=== PATIENT | male | born 1960 | race Hispanic/Latino ===

== ENCOUNTER 2019-04-14 09:47 | Inpatient (IN) | payer OTHER ==
[~2019-04-14] VITALS: Ht 165.1 cm; Wt 68.0 kg
[2019-04-14] VITALS (21 sets, daily range): BP systolic 112–135; BP diastolic 60–86
[2019-04-14] MEDS ORDERED: ONDANSETRON HCL 4 MG/2 ML VIAL ONE ×2 (09:56→16:35)
[2019-04-14] MEDS ORDERED: KETOROLAC TROMETHAMINE 30MG/ML ONE (09:56)
[2019-04-14 10:03] LABS: BASOPHILS % (AUTO) 0.3 % (0.0-5.0); EOSINOPHILS % (AUTO) 1.7 % (0.0-8.0); HEMATOCRIT 47.7 % (42-54); LYMPHOCYTES % (AUTO) 7.1 % (21.0-51.0); MEAN CORPUSCULAR HEMOGLOBIN 33.7 pg (27.0-33.0); MEAN CORPUSCULAR HGB CONC 34.4 g/dL (32.0-36.0); MONOCYTES % (AUTO) 8.2 % (3.0-13.0); NEUTROPHILS % (AUTO) 82.7 % (40.0-77.0); PLATELET COUNT (AUTO) 252 K/uL (130-400); RED BLOOD CELL COUNT(AUTO) 4.87 MIL/uL (4.50-6.20); RED CELL DISTRIBUTION WIDTH 13.5 % (11.0-15.5); WHITE BLOOD COUNT (AUTO) 12.5 K/uL (4.8-10.8)
[2019-04-14 10:18] LABS: CREATININE 1.1 mg/dL (0.5-1.5); POTASSIUM 4.4 mmol/L (3.5-5.1)
[2019-04-14 10:22] LABS: ALBUMIN 3.2 g/dL (3.5-5.0); BILIRUBIN,DIRECT 0.2 mg/dL (0.0-0.3); BILIRUBIN,TOTAL 0.9 mg/dL (0.2-1.0); TOTAL PROTEIN, SERUM 7.8 g/dL (6.0-8.3)
[2019-04-14] MEDS ORDERED: ZOSYN 3.375GM+NS 50ML 50 ML IV ONE ×2 (11:56→18:08)
[2019-04-14 12:05] LABS: APPEARANCE,URINE Clear (CLEAR); BILIRUBIN,URINE Small (NEGATIVE); COLOR,URINE Dark Yellow (YELLOW); GLUCOSE, URINE (UA) Negative (NEGATIVE); KETONES,URINE Negative (NEGATIVE); LEUKOCYTE ESTERASE ,URINE Negative (NEGATIVE); NITRATE,URINE Negative (NEGATIVE); OCCULT BLOOD,URINE Trace (NEGATIVE); PH,URINE 5.5 (5.0-8.0); PROTEIN,URINE POS 2+ mg/dL (NEGATIVE)
[2019-04-14 12:13] LABS: AMPHET/METH SCREEN,URINE NEGATIVE (NEGATIVE); BARBITURATE SCREEN, URINE NEGATIVE (NEGATIVE); BENZODIAZEPINES SCREEN,URINE NEGATIVE (NEGATIVE); CANNABINOID SCREEN,URINE NEGATIVE (NEGATIVE); COCAINE SCREEN,URINE POSITIVE (NEGATIVE); OPIATE SCREEN,URINE NEGATIVE (NEGATIVE); PHENCYCLIDINE SCREEN,URINE NEGATIVE (NEGATIVE)
[2019-04-14 12:47] LABS: BACTERIA,URINE Rare /HPF (None Seen); RBC,URINE 0-1 /HPF (0-1); SQUAMOUS EPITHELIAL CELL,UR Rare /HPF (0-2); WBC,URINE 0-1 /HPF (0-1)
[2019-04-14] MEDS ORDERED: LACTATED RINGERS 1000ML 1,000 ML IV ONE (13:29)
--- NOTE | 2019-04-14 13:49 | NUR ---
POTENTIAL FOR INFECTION: SHAVED ENTIRE ABDOMEN PER TARAS SAEZ.
--- NOTE | 2019-04-14 14:05 | NUR ---
VALUABLES: VALUABLES SENT TO SECURITY, SEE ATTACHED SHEET.
[2019-04-14] MEDS ORDERED: BUPIVACAINE/PF 0.5% 30ML VIAL ONE ×2 (14:33→16:04)
[2019-04-14] MEDS ORDERED: MIDAZOLAM HCL 1 MG/ML 2ML VIAL ONE (15:47)
[2019-04-14] MEDS ORDERED: PROPOFOL 10 MG/ML 20ML VIAL IV ONE (15:52)
[2019-04-14] MEDS ORDERED: LIDOCAINE PF 2% 5ML ABBOJECT ONE (15:52)
[2019-04-14] MEDS ORDERED: ROCURONIUM 10MG/1ML SYR 10 MG/ML ML ONE (15:53)
[2019-04-14] MEDS ORDERED: FENTANYL CITRATE PF 50 MCG/1 ML 5ML AMP IV ONE (15:53)
[2019-04-14] MEDS ORDERED: EPHEDRINE SULFATE 50 MG/ML AMPULE ONE (16:37)
[2019-04-14] MEDS ORDERED: GLYCOPYRROLATE 1 MG/5 ML SYRINGE ONE (17:29)
[2019-04-14] MEDS ORDERED: NEOSTIGMINE 5MG/5ML SYR IV ONE (17:29)
[2019-04-14] MEDS ORDERED: MEPERIDINE-PF 25 MG/ML SYG ONE ×3 (17:36→19:15)
[2019-04-14] MEDS: LACTATED RINGERS 1000ML 1,000 ML IV SCH (17:56)
[2019-04-14] MEDS ORDERED: ONDANSETRON HCL 4 MG/2 ML VIAL IVP PRN (18:00)
--- NOTE | 2019-04-14 19:26 | NUR ---
SECURITY RETURNED PT'S BELONGINGS. Addendum: 04/14/19 at 1927 by NICOLA TALBOT RN RN Amended: Links added.
[2019-04-15] VITALS (8 sets, daily range): BP systolic 108–119; BP diastolic 53–74
[2019-04-15] MEDS ORDERED: ZOSYN 3.375GM+NS 50ML 50 ML IV ONE (00:55)
[2019-04-15] MEDS: ZOSYN 3.375GM+NS 50ML 50 ML IV SCH ×3 (01:14→18:58)
[2019-04-15 04:25] LABS: BASOPHILS % (AUTO) 0.3 % (0.0-5.0); EOSINOPHILS % (AUTO) 0.4 % (0.0-8.0); HEMATOCRIT 39.7 % (42-54); LYMPHOCYTES % (AUTO) 11.5 % (21.0-51.0); MEAN CORPUSCULAR HEMOGLOBIN 33.5 pg (27.0-33.0); MEAN CORPUSCULAR HGB CONC 34.5 g/dL (32.0-36.0); MONOCYTES % (AUTO) 9.5 % (3.0-13.0); NEUTROPHILS % (AUTO) 78.3 % (40.0-77.0); PLATELET COUNT (AUTO) 248 K/uL (130-400); RED BLOOD CELL COUNT(AUTO) 4.09 MIL/uL (4.50-6.20); RED CELL DISTRIBUTION WIDTH 13.4 % (11.0-15.5); WHITE BLOOD COUNT (AUTO) 8.9 K/uL (4.8-10.8)
[2019-04-15 04:40] LABS: CREATININE 1.1 mg/dL (0.5-1.5); POTASSIUM 4.2 mmol/L (3.5-5.1)
[2019-04-15] MEDS: LACTATED RINGERS 1000ML 1,000 ML IV SCH (07:16)
--- NOTE | 2019-04-15 08:00 | NUR ---
TOLERATING CLEAR LIQUID DIET PATIENT REPORT NO DISCOMFORTS AFTER CLEAR LIQUID. WILL PROCEED WITH ADVANCING DIET TO FULL LIQUIDS, PATIENT IN AGREEMENT. ENCOURAGED PATIENT TO AMBULATE AND CONTINUE WITH IS EXERCISES TODAY.
--- NOTE | 2019-04-15 10:15 | NUR ---
DENISE TOVAR FOR DR. RG PATIENT INFORMED OF DISCHARGE PLAN FOR THIS AFTERNOON TODAY IF PATIENT TOLERATING SOFT DIET AT LUNCHTIME. PROVIDED EDUCATION TO PATIENT ON DIET OPTIONS AND TO AVOID HIGH FAT FOOD OPTIONS.
[2019-04-15 10:42] LABS: ALBUMIN 2.4 g/dL (3.5-5.0); BILIRUBIN,DIRECT 0.3 mg/dL (0.0-0.3); TOTAL PROTEIN, SERUM 6.3 g/dL (6.0-8.3)
--- NOTE | 2019-04-15 14:00 | NUR ---
NOT TOLERATING SOFT DIET PATIENT REPORTS ABDOMINAL DISCOMFORT, FEELING "BLOATED", STATES "BROKE OUT IN SWEATS" AFTER EATING LUNCH, AND SAYS THAT OVERALL "I JUST DON'T FEEL GOOD FROM MY STOMACH AFTER EATING THE LUNCH THEY BROUGHT ME." I ASKED PATIENT WHAT OPTIONS HE ATE FOR LUNCH AND PATIENT REPLIED "HAMBURGER AND FRIES." I REMINDED PATIENT TO STAY AWAY FOR FATTY/FRIED OPTIONS IF OFFERED BY DIETARY STAFF. CALLED DENISE TOVAR FOR DR. RG TO REPORT PATIENT SYMPTOMS AND WAS TOLD TO CONTINUE TO MONITOR PATIENT AND IF PATIENT TOLERATES DINNER, THEN PATIENT MAY BE DISCHARGED AFTER DINNERTIME. DENISE TOVAR ALSO ADDED TO KEEP PATIENT ON SOFT DIET AND TO REMIND PATIENT TO CHOOSE LOW FAT OPTIONS AND IF PATIENT DOES NOT TOLERATE DINNER THEN OKAY TO HOLD DISCHARGE TODAY.
--- NOTE | 2019-04-15 16:30 | NUR ---
INITIAL MET W PT ALONE, AAOX3,INDP, DRIVE, NO DME/HH/PROV; LIVES ALONE, RECENT DIVORCE, SELF EMPLOYED, NO STEADY PMD, RESOURCE PKT GIVEN, DCP HOME Addendum: 04/16/19 at 1732 by DANIEL LYONS RN Amended: Links added.
--- NOTE | 2019-04-15 17:45 | NUR ---
PATIENT REPORT PATIENT REPORTS FEELING ABDOMINAL DISCOMFORT AFTER EATING DINNER. PATIENT STATES HE DOESN'T FEEL BAD HE DID AFTER LUNCH MEAL, BUT DOES NOT FEEL GOOD ENOUGH TO GO HOME. PATIENT STATES THAT HIS "STOMACH FEELS LIKE ITS FULL." WILL NOT DISCHARGE PATIENT PATIENT DOES NOT FEEL WELL ENOUGH AFTER EATING DINNER TO GO HOME AND ALSO HE LIVES HOME ALONE. ENCOURAGED PATIENT TO CONTINUE AMBULATION AND REPORT IF SYMPTOMS WORSEN.
[2019-04-15] MEDS: MORPHINE SULFATE 4 MG/1ML SYG IV PRN (21:51)
[2019-04-16] MEDS: ZOSYN 3.375GM+NS 50ML 50 ML IV SCH (02:18)
[2019-04-16 04:00] VITALS: BP 121/67
[2019-04-16 04:22] LABS: BASOPHILS % (AUTO) 0.3 % (0.0-5.0); EOSINOPHILS % (AUTO) 1.8 % (0.0-8.0); HEMATOCRIT 36.7 % (42-54); LYMPHOCYTES % (AUTO) 6.7 % (21.0-51.0); MEAN CORPUSCULAR HGB CONC 34.5 g/dL (32.0-36.0); MEAN CORPUSCULAR VOLUME 98.5 fL (79-99); MONOCYTES % (AUTO) 10.7 % (3.0-13.0); NEUTROPHILS % (AUTO) 80.5 % (40.0-77.0); PLATELET COUNT (AUTO) 220 K/uL (130-400); RED BLOOD CELL COUNT(AUTO) 3.72 MIL/uL (4.50-6.20); RED CELL DISTRIBUTION WIDTH 13.3 % (11.0-15.5); WHITE BLOOD COUNT (AUTO) 10.2 K/uL (4.8-10.8)
[2019-04-16 05:04] LABS: POTASSIUM 3.8 mmol/L (3.5-5.1)
[2019-04-16 08:02] VITALS: BP 125/76
--- NOTE | 2019-04-16 11:17 | NUR ---
CALL TO FREDY WALKER FOR T/C PLACED TO FREDY WALKER FOR , LEFT MESSAGE TO CALL BACK.
[2019-04-16 11:36] VITALS: BP 120/69
[2019-04-16] MEDS: MORPHINE SULFATE 4 MG/1ML SYG IV PRN (13:25)
--- NOTE | 2019-04-16 16:00 | NUR ---
dr lara paged to enquire if pt is going to be d/c today; pending her to call back
[2019-04-16 16:21] VITALS: BP 114/60
--- NOTE | 2019-04-16 17:18 | NUR ---
NO CALL FROM NO RESPONSE, PAGED AGAIN, PENDING CALL BACK, NOTIFIED PRIMARY.
--- NOTE | 2019-04-16 18:43 | NUR ---
dr Johnson here to see patient, she stated ok for pt to be discharged home and ok for him to drive himself home since he has not received narcotic's in the last 4 hours; IV access removed; pt stated understanding of all dc instructions on after care for a lap-choly including signs and symptoms to watch for and report, activity limitations, wound care, follow up appointment and low fat diet.
== END 2019-04-16 18:55 | disposition home or self-care (01) | DRG 354 ==
LOC: EDH 09:47 → OBSVTOIN 09:48 → EDHIP 09:48 → 4BH 13:53
PROVIDERS: ADMIT Student in an Organized Health Care Education/Training Program; ATTEND Student in an Organized Health Care Education/Training Program
PROC: 0FT44ZZ Resection of Gallbladder, Percutaneous Endoscopic Approach (ICD-10-PCS; 2019-04-14)
PROC: 0WQF0ZZ Repair Abdominal Wall, Open Approach (ICD-10-PCS; principal; 2019-04-14 14:00)
DX: K42.9 Umbilical hernia without obstruction or gangrene (principal); K81.0 Acute cholecystitis
CPT/HCPCS: 36415; 76705; 80048; 80076; 80305; 81001; 82550; 83690; 85025; 87040; 93005; G0378; J1885; J2001; J2175; J2250; J2270; J2405; J2543; J2704; J2710; J3010; J3490; J7030; J7120